=== PATIENT | male | born 1965 | race Asian ===

== ENCOUNTER 2023-09-06 12:58 | Emergency (ER) | payer BC ==
[~2023-09-06] VITALS: Ht 175.3 cm; Wt 90.7 kg
[2023-09-06 13:26] VITALS: BP_SYST 148; PULSE 72; RESP 17; TEMP 97.3; O2SAT 98
[2023-09-06 14:30] LABS: BASOPHILS % (AUTO) 0.3 % (0.0-2.0); EOSINOPHILS % (AUTO) 0.5 % (0.0-4.0); HEMATOCRIT 45.2 % (36-54); HEMOGLOBIN 15.2 g/dL (14.0-18.0); LYMPHOCYTES # (AUTO) 1.1 K/uL (1.0-5.5); LYMPHOCYTES % (AUTO) 17.2 % (20.5-51.5); MEAN CORPUSCULAR HEMOGLOBIN 27 pg (27-31); MEAN CORPUSCULAR HGB CONC 34 % (32-36); MEAN CORPUSCULAR VOLUME 79 fL (79.0-98.0); MONOCYTES # (AUTO) 0.4 K/uL (0.0-1.0); MONOCYTES % (AUTO) 6.8 % (1.7-9.3); NEUTROPHILS # (AUTO) 4.9 K/uL (1.8-7.7); NEUTROPHILS % (AUTO) 75.2 % (40.0-70.0); PLATELET COUNT (AUTO) 171 K/uL (130-430); RED BLOOD CELL COUNT(AUTO) 5.72 MIL/uL (4.2-6.2); RED CELL DISTRIBUTION WIDTH 14.2 % (9.0-15.0); WHITE BLOOD COUNT (AUTO) 6.5 K/uL (4.8-10.8)
[2023-09-06 14:34] LABS: PROTHROMBIN TIME 10.3 SECS (9.5-12.5)
[2023-09-06 14:36] LABS: ALANINE AMINOTRANSFERASE 31 U/L (12-78); ALBUMIN 4.1 g/dL (3.4-4.8); ANION GAP 9 (5-15); ASPARTATE AMINOTRANSFERASE 17 U/L (10-37); CALCIUM 9.1 mg/dL (8.4-11.0); CARBON DIOXIDE 28 mmol/L (23-29); CHLORIDE 106 mmol/L (98-107); GFR AFRICAN AMERICAN 111 mL/min (>90); GFR NON AFRICAN-AMERICAN 92 mL/min (>90); GLUCOSE 135 mg/dL (74-106); SODIUM SERUM 143 mmol/L (136-145); TOTAL BILIRUBIN 0.7 mg/dL (0.0-1.0); UREA NITROGEN, BLOOD 15 mg/dL (8-21)
[2023-09-06 14:38] LABS: BILIRUBIN,DIRECT 0.1 mg/dL (0.0-0.3); CREATINE KINASE, TOTAL 162 U/L (39-308)
[2023-09-06] MEDS ORDERED: MECL-261 PO (14:51)
[2023-09-06] MEDS ORDERED: CLON0.1T PO (15:09)
== END 2023-09-06 15:04 | disposition home or self-care (01) ==
LOC: SED 12:58
DX: R42 Dizziness and giddiness (principal); R51.9 Headache, unspecified; R03.0 Elevated blood-pressure reading, without diagnosis of hypertension; Z88.2 Allergy status to sulfonamides
CPT/HCPCS: 36415; 70450-TC; 71045; 80048; 80076; 82550; 84484; 85025; 85610; 85730; 93005; 99285

== ENCOUNTER 2023-09-07 03:36 | Inpatient (IN) | payer BC ==
[~2023-09-07] VITALS: Ht 175.3 cm; Wt 90.4 kg
[~2023-09-07 03:36] MED LIST: CLON0.1T PO; MECL-261 PO
[2023-09-07 03:42] VITALS: BP_SYST 164; PULSE 75; RESP 18; TEMP 96.9; O2SAT 97
[2023-09-07] MEDS ORDERED: iohexoL 350 mgI/mL, 100 ML INFUS..BTL IV ONE (04:13)
[2023-09-07 04:34] LABS: BASOPHILS % (AUTO) 0.1 % (0.0-2.0); EOSINOPHILS # (AUTO) 0.1 K/uL (0.0-0.4); EOSINOPHILS % (AUTO) 0.7 % (0.0-4.0); HEMATOCRIT 42.4 % (36-54); HEMOGLOBIN 14.4 g/dL (14.0-18.0); LYMPHOCYTES % (AUTO) 11.7 % (20.5-51.5); MEAN CORPUSCULAR HEMOGLOBIN 27 pg (27-31); MEAN CORPUSCULAR HGB CONC 34 % (32-36); MEAN CORPUSCULAR VOLUME 79 fL (79.0-98.0); MONOCYTES # (AUTO) 0.5 K/uL (0.0-1.0); MONOCYTES % (AUTO) 5.6 % (1.7-9.3); NEUTROPHILS # (AUTO) 7.1 K/uL (1.8-7.7); NEUTROPHILS % (AUTO) 81.9 % (40.0-70.0); PLATELET COUNT (AUTO) 160 K/uL (130-430); RED BLOOD CELL COUNT(AUTO) 5.37 MIL/uL (4.2-6.2); RED CELL DISTRIBUTION WIDTH 14.8 % (9.0-15.0); WHITE BLOOD COUNT (AUTO) 8.7 K/uL (4.8-10.8)
[2023-09-07] MEDS: ENALAPRILAT DIHYDRATE 1.25 MG/ML VIAL IVP ONE (04:40)
[2023-09-07] MEDS: CLOPIDOGREL BISULFATE 75 MG TABLET PO ONE (04:47)
[2023-09-07] MEDS: ASPIRIN 325 MG TABLET PO ONE (04:47)
[2023-09-07] MEDS: ATORVASTATIN 20 MG TABLET PO ONE (04:47)
[2023-09-07 04:55] LABS: ALBUMIN 3.7 g/dL (3.4-4.8); CALCIUM 8.6 mg/dL (8.4-11.0); CREATININE 0.99 mg/dL (0.55-1.30); POTASSIUM 3.5 mmol/L (3.5-5.1); TOTAL BILIRUBIN 0.7 mg/dL (0.0-1.0); TOTAL PROTEIN, SERUM 7.2 g/dL (6.4-8.3)
[2023-09-07 04:58] LABS: BILIRUBIN,DIRECT 0.1 mg/dL (0.0-0.3)
[2023-09-07] MEDS: hydrALAZINE HCL 20 MG/ML VIAL IVP ONE (05:14)
[2023-09-07] MEDS: ASPIRIN 300 MG/SUPP.RECT SUPP RC ONE ×2 (05:26→05:34)
[2023-09-07] MEDS ORDERED: ONDANSETRON HCL 4 MG/2 ML VIAL ONE (06:40)
[2023-09-07] MEDS: ONDANSETRON HCL 4 MG/2 ML VIAL IVP PRN (06:47)
[2023-09-07] MEDS: D5LR 1,000 ML IV SCH (12:45)
[2023-09-07] MEDS: FAMOTIDINE PF 20 MG/2 ML VIAL IVP ONE (13:05)
[2023-09-07] MEDS: hydrALAZINE HCL 20 MG/ML VIAL IVP PRN (15:11)
[2023-09-07 15:12] VITALS: BP_SYST 167; PULSE 63; RESP 18; TEMP 98.9
[2023-09-07 15:14] VITALS: O2SAT 97
[2023-09-07 16:18] VITALS: BP_SYST 147; PULSE 70; RESP 18; TEMP 98.3; O2SAT 99
[2023-09-07] MEDS: SODIUM CHLORIDE 0.65% NASAL SPRAY NS PRN (17:48)
[2023-09-07 20:00] VITALS: BP_SYST 160; PULSE 62; RESP 18; TEMP 98.2; O2SAT 98
[2023-09-07] MEDS: FAMOTIDINE PF 20 MG/2 ML VIAL IVP SCH (20:29)
[2023-09-07 22:00] VITALS: BP_SYST 145; PULSE 68; RESP 18; O2SAT 98
[2023-09-08] VITALS (7 sets, daily range): BP systolic 151–161; PULSE 61–69; RESP 18; TEMP 97.8–98.7; O2SAT 97–100
[2023-09-08 06:14] LABS: BASOPHILS % (AUTO) 0.1 % (0.0-2.0); EOSINOPHILS # (AUTO) 0.1 K/uL (0.0-0.4); EOSINOPHILS % (AUTO) 0.7 % (0.0-4.0); HEMATOCRIT 41.4 % (36-54); HEMOGLOBIN 13.8 g/dL (14.0-18.0); LYMPHOCYTES # (AUTO) 1.6 K/uL (1.0-5.5); MEAN CORPUSCULAR HEMOGLOBIN 27 pg (27-31); MEAN CORPUSCULAR HGB CONC 33 % (32-36); MEAN CORPUSCULAR VOLUME 80 fL (79.0-98.0); MONOCYTES # (AUTO) 0.7 K/uL (0.0-1.0); MONOCYTES % (AUTO) 7.5 % (1.7-9.3); NEUTROPHILS % (AUTO) 74.7 % (40.0-70.0); PLATELET COUNT (AUTO) 166 K/uL (130-430); RED BLOOD CELL COUNT(AUTO) 5.16 MIL/uL (4.2-6.2); RED CELL DISTRIBUTION WIDTH 14.4 % (9.0-15.0); WHITE BLOOD COUNT (AUTO) 9.4 K/uL (4.8-10.8)
[2023-09-08 07:24] LABS: CALCIUM 8.6 mg/dL (8.4-11.0); CREATININE 0.92 mg/dL (0.55-1.30); FREE T4 (FREE THYROXINE) 0.8 ng/dl (0.8-1.5); POTASSIUM 3.9 mmol/L (3.5-5.1); THYROID STIMULATING HORMONE 0.55 uIu/mL (0.36-3.74)
[2023-09-08] MEDS: ASPIRIN 300 MG/SUPP.RECT SUPP RC SCH (09:03)
[2023-09-08] MEDS: cloNIDine HCL 0.1 MG/24 HR PATCH.TDWK TD ONE (12:23)
[2023-09-08] MEDS ORDERED: *PPN PER PHARMACY XX PRN (13:15)
[2023-09-08] MEDS ORDERED: DEXTROSE 50% JECT 50 ML DISP.SYRIN IVP PRN (13:15)
[2023-09-08] MEDS ORDERED: INSULIN REGULAR, HUMAN 100 UNITS/ML, 3 ML VIAL (humuLIN R) SUBCUT PRN (13:15)
[2023-09-09 01:13] VITALS: BP_SYST 141; PULSE 65; RESP 18; TEMP 98.6; O2SAT 98
[2023-09-09 05:03] LABS: BASOPHILS % (AUTO) 0.4 % (0.0-2.0); EOSINOPHILS # (AUTO) 0.1 K/uL (0.0-0.4); EOSINOPHILS % (AUTO) 1.7 % (0.0-4.0); HEMATOCRIT 40.6 % (36-54); HEMOGLOBIN 13.7 g/dL (14.0-18.0); LYMPHOCYTES # (AUTO) 1.9 K/uL (1.0-5.5); LYMPHOCYTES % (AUTO) 24.8 % (20.5-51.5); MEAN CORPUSCULAR HEMOGLOBIN 27 pg (27-31); MEAN CORPUSCULAR HGB CONC 34 % (32-36); MEAN CORPUSCULAR VOLUME 81 fL (79.0-98.0); MONOCYTES # (AUTO) 0.6 K/uL (0.0-1.0); MONOCYTES % (AUTO) 8.3 % (1.7-9.3); NEUTROPHILS # (AUTO) 5.1 K/uL (1.8-7.7); NEUTROPHILS % (AUTO) 64.8 % (40.0-70.0); PLATELET COUNT (AUTO) 151 K/uL (130-430); RED BLOOD CELL COUNT(AUTO) 5.03 MIL/uL (4.2-6.2); RED CELL DISTRIBUTION WIDTH 14.2 % (9.0-15.0); WHITE BLOOD COUNT (AUTO) 7.8 K/uL (4.8-10.8)
[2023-09-09 05:14] LABS: ALBUMIN 3.3 g/dL (3.4-4.8); CALCIUM 8.4 mg/dL (8.4-11.0); CREATININE 0.81 mg/dL (0.55-1.30); PHOSPHORUS 3.2 mg/dL (2.7-4.5); POTASSIUM 3.2 mmol/L (3.5-5.1); TOTAL BILIRUBIN 1.3 mg/dL (0.0-1.0)
[2023-09-09 08:06] VITALS: BP_SYST 146; PULSE 60; RESP 18; TEMP 98.2; O2SAT 99
[2023-09-09 09:00] VITALS: O2SAT 99
[2023-09-09] MEDS: ATORVASTATIN 20 MG TABLET PO SCH (09:00)
[2023-09-09 12:27] VITALS: BP_SYST 166; PULSE 69; RESP 18; TEMP 98.8; O2SAT 98
[2023-09-09 16:55] VITALS: BP_SYST 153; PULSE 64; RESP 16; TEMP 98.5; O2SAT 96
[2023-09-09] MEDS: cloNIDine HCL 0.2 MG/24 HR PATCH.TDWK TD ONE (18:12)
[2023-09-09] MEDS ORDERED: MORPHINE 2 MG/ML INJ. SYRINGE IVP PRN (18:45)
[2023-09-09] MEDS: MORPHINE 4 MG INJ. 4 MG/ML VIAL IVP PRN (18:52)
[2023-09-09 20:15] VITALS: BP_SYST 152; PULSE 70; RESP 18; TEMP 98.8; O2SAT 98
[2023-09-09] MEDS: POTASSIUM CHLORIDE 40 MEQ, LIDOCAINE JECT 2% PF 100 MG 75 MG in NS 250 ML IV ONE (20:28)
[2023-09-09] MEDS: TPN PERIPHERAL IV SCH (23:28)
[2023-09-09] MEDS: POTASSIUM CHLORIDE IV SCH (23:28)
[2023-09-09] MEDS: SODIUM ACETATE IV SCH (23:28)
[2023-09-09] MEDS: [UNRECOGNIZED DRUG - OTHER] IV SCH (23:28)
[2023-09-10 00:20] VITALS: BP_SYST 151; PULSE 66; RESP 18; TEMP 98.2; O2SAT 96
[2023-09-10 06:10] LABS: BASOPHILS % (AUTO) 0.2 % (0.0-2.0); EOSINOPHILS # (AUTO) 0.1 K/uL (0.0-0.4); EOSINOPHILS % (AUTO) 1.6 % (0.0-4.0); HEMATOCRIT 41.9 % (36-54); LYMPHOCYTES # (AUTO) 1.3 K/uL (1.0-5.5); LYMPHOCYTES % (AUTO) 20.1 % (20.5-51.5); MEAN CORPUSCULAR HEMOGLOBIN 27 pg (27-31); MEAN CORPUSCULAR HGB CONC 33 % (32-36); MEAN CORPUSCULAR VOLUME 80 fL (79.0-98.0); MONOCYTES # (AUTO) 0.6 K/uL (0.0-1.0); MONOCYTES % (AUTO) 8.6 % (1.7-9.3); NEUTROPHILS # (AUTO) 4.6 K/uL (1.8-7.7); NEUTROPHILS % (AUTO) 69.5 % (40.0-70.0); PLATELET COUNT (AUTO) 146 K/uL (130-430); RED BLOOD CELL COUNT(AUTO) 5.24 MIL/uL (4.2-6.2); RED CELL DISTRIBUTION WIDTH 14.2 % (9.0-15.0); WHITE BLOOD COUNT (AUTO) 6.7 K/uL (4.8-10.8)
[2023-09-10 06:54] LABS: ALBUMIN 3.4 g/dL (3.4-4.8); CALCIUM 8.8 mg/dL (8.4-11.0); CREATININE 0.77 mg/dL (0.55-1.30); PHOSPHORUS 3.5 mg/dL (2.7-4.5); POTASSIUM 3.7 mmol/L (3.5-5.1); TOTAL BILIRUBIN 1.7 mg/dL (0.0-1.0); TOTAL PROTEIN, SERUM 7.2 g/dL (6.4-8.3)
[2023-09-10 08:00] VITALS: BP_SYST 148; PULSE 61; RESP 18; TEMP 97.8; O2SAT 97
[2023-09-10 11:41] VITALS: BP_SYST 152; PULSE 65; RESP 17; TEMP 97; O2SAT 95
[2023-09-10 16:17] VITALS: BP_SYST 157; PULSE 63; RESP 17; TEMP 97.7; O2SAT 98
[2023-09-10] MEDS ORDERED: POTASSIUM CHLORIDE 20 MEQ TABLET.ER PO ONE (18:45)
[2023-09-10 20:00] VITALS: BP_SYST 154; PULSE 61; RESP 16; TEMP 98.2; O2SAT 99
[2023-09-10] MEDS: TPN PERIPHERAL IV SCH (22:05)
[2023-09-10] MEDS: POTASSIUM CHLORIDE IV SCH (22:05)
[2023-09-10] MEDS: SODIUM ACETATE IV SCH (22:05)
[2023-09-10] MEDS: [UNRECOGNIZED DRUG - OTHER] IV SCH (22:05)
[2023-09-10] MEDS: FAT EMULSIONS 250 ML IV SCH (22:07)
[2023-09-11] VITALS: BP_SYST 127; PULSE 62; RESP 18; TEMP 98.5; O2SAT 94
[2023-09-11 07:04] LABS: ALBUMIN 3.3 g/dL (3.4-4.8); CALCIUM 8.7 mg/dL (8.4-11.0); CREATININE 0.82 mg/dL (0.55-1.30); PHOSPHORUS 3.5 mg/dL (2.7-4.5); POTASSIUM 3.7 mmol/L (3.5-5.1)
[2023-09-11 08:00] VITALS: BP_SYST 129; PULSE 66; RESP 22; TEMP 98.1; O2SAT 97
[2023-09-11 12:39] VITALS: BP_SYST 139; PULSE 64; RESP 17; TEMP 98.3; O2SAT 98
[2023-09-11 16:16] VITALS: BP_SYST 130; PULSE 95; RESP 18; TEMP 98.4; O2SAT 96
[2023-09-11 20:00] VITALS: BP_SYST 182; PULSE 71; RESP 20; TEMP 98.8
[2023-09-11 20:45] VITALS: O2SAT 97
[2023-09-11] MEDS: SODIUM ACETATE IV SCH (23:35)
[2023-09-11] MEDS: POTASSIUM CHLORIDE IV SCH (23:35)
[2023-09-11] MEDS: TPN PERIPHERAL IV SCH (23:35)
[2023-09-11] MEDS: [UNRECOGNIZED DRUG - OTHER] IV SCH (23:35)
[2023-09-12 02:15] VITALS: RESP 20; TEMP 98; O2SAT 98
[2023-09-12 08:02] VITALS: BP_SYST 144; PULSE 77; RESP 18; TEMP 98.5; O2SAT 99
[2023-09-12 08:04] VITALS: O2SAT 99
[2023-09-12 08:22] LABS: ALBUMIN 3.2 g/dL (3.4-4.8); CALCIUM 8.3 mg/dL (8.4-11.0); CREATININE 0.69 mg/dL (0.55-1.30); PHOSPHORUS 3.1 mg/dL (2.7-4.5); POTASSIUM 3.4 mmol/L (3.5-5.1); TOTAL BILIRUBIN 1.4 mg/dL (0.0-1.0); TOTAL PROTEIN, SERUM 6.8 g/dL (6.4-8.3)
[2023-09-12 12:37] VITALS: BP_SYST 151; PULSE 58; RESP 18; TEMP 98.5; O2SAT 98
[2023-09-12] MEDS: POTASSIUM CHLORIDE 40 MEQ, LIDOCAINE JECT 2% PF 100 MG 50 MG in NS 250 ML IV ONE (15:50)
[2023-09-12 17:11] VITALS: BP_SYST 166; PULSE 68; RESP 17; TEMP 98.2
[2023-09-12 20:00] VITALS: BP_SYST 137; PULSE 65; RESP 20; TEMP 98.5; O2SAT 99
[2023-09-12] MEDS: SODIUM ACETATE IV SCH (22:59)
[2023-09-12] MEDS: TPN PERIPHERAL IV SCH (22:59)
[2023-09-12] MEDS: POTASSIUM CHLORIDE IV SCH (22:59)
[2023-09-12] MEDS: [UNRECOGNIZED DRUG - OTHER] IV SCH (22:59)
[2023-09-13 04:29] VITALS: RESP 20; TEMP 97; O2SAT 97
[2023-09-13 06:36] LABS: ALBUMIN 3.2 g/dL (3.4-4.8); CALCIUM 8.6 mg/dL (8.4-11.0); CREATININE 0.64 mg/dL (0.55-1.30); PHOSPHORUS 3.5 mg/dL (2.7-4.5); POTASSIUM 3.3 mmol/L (3.5-5.1); TOTAL BILIRUBIN 1.3 mg/dL (0.0-1.0); TOTAL PROTEIN, SERUM 6.9 g/dL (6.4-8.3)
[2023-09-13 08:00] VITALS: BP_SYST 145; PULSE 96; RESP 18; TEMP 98.2; O2SAT 98
[2023-09-13 09:00] VITALS: O2SAT 99
[2023-09-13 09:55] VITALS: BP_SYST 157; PULSE 78; RESP 18; TEMP 98.3; O2SAT 98
[2023-09-13] MEDS ORDERED: [UNRECOGNIZED DRUG - OTHER] IV SCH (21:00)
[2023-09-13] MEDS ORDERED: TPN PERIPHERAL IV SCH (21:00)
[2023-09-13] MEDS ORDERED: SODIUM ACETATE IV SCH (21:00)
[2023-09-13] MEDS ORDERED: POTASSIUM CHLORIDE IV SCH (21:00)
[2023-09-15] MEDS ORDERED: cloNIDine HCL 0.2 MG/24 HR PATCH.TDWK TD SCH (09:00)
== END 2023-09-13 11:10 | disposition short-term general hospital (02) | DRG 65 ==
LOC: SED 03:36 → STU 05:16
PROVIDERS: ADMIT Internal Medicine; ATTEND Internal Medicine
DX: I63.81 Other cerebral infarction due to occlusion or stenosis of small artery (principal); E44.1 Mild protein-calorie malnutrition; I67.4 Hypertensive encephalopathy; I10 Essential (primary) hypertension; E66.9 Obesity, unspecified; E87.6 Hypokalemia; G62.9 Polyneuropathy, unspecified; Q04.9 Congenital malformation of brain, unspecified; Z90.49 Acquired absence of other specified parts of digestive tract; Z88.2 Allergy status to sulfonamides; Z68.29 Body mass index [BMI] 29.0-29.9, adult
CPT/HCPCS: 36415; 70450-TC; 70496; 70498; 70551; 71045; 80048; 80053; 80061; 80076; 82948; 83735; 83880; 84100; 84439; 84443; 84478; 84484; 85025; 85379; 92610-GN; 93005; 93306; 96374; 97112-GP; 97116-GP; 99285; G0378; J0360; J0610; J1815; J2270; J2405; J3475; J3480; J3490; J7050; Q9967